=== PATIENT | male | born 1955 | race Caucasian/White ===

== ENCOUNTER 2017-03-07 09:28 | Observation (INO) ==
--- NOTE | 2017-03-07 09:50 | Emergency Department Note ---
Disposition Clinical Impression: Chest pain, COPD (chronic obstructive pulmonary disease), CO2 narcosis Disposition: Admitted As Inpatient Condition: Fair Time of Disposition: 11:39 ([facility]) Altered Mental Status HPI - General Chief Complaint: ED Altered Mental Status Stated Complaint: Confusion Time Seen by Provider: 03/07/17 09:40 Source: patient, EMS Mode of arrival: EMS Limitations: no limitations Nursing Notes Reviewed: Yes Vital Signs Reviewed: Yes - History of Present Illness HPI Narrative: Patient reportedly had awoken this morning and was somewhat confused did not know where he was apparently called EMS/[facility] and they then dispensed the squad to the house with ahead and transported to the ER patient just recently moved into the house woke up after having a rough night sleep really was not sure where he was called EMS denies any blurred vision double vision loss vision states he has had cough congestion sputum production patient states that he had little bit of chest pain but denies any nausea vomiting diaphoresis or radiation up into the neck and jaw states it hurt to breathe did not hurt to move patient states that this is ongoing for him denies any abdominal pain or discomfort denies any rashes or lesions denies any history of insect bites Noted to have a significantly large bedbug at his bedside MD complaint: confusion Onset (ago): unknown Consistency of Symptoms: waxing and waning Context: history of similar presentation, COPD Associated symptoms: Reports: malaise, weakness. Denies: chest pain, cough, diaphoresis, fever, chills, headaches, loss of appetite, nausea/vomiting, rash, seizure, shortness of breath, syncope, foul smelling urine, difficulty walking, diarrhea, incontinence - Related Data Home Medications Medication Instructions Recorded Confirmed Budesonide/Formoterol 160/4.5 2 puff IH BIDR 05/12/15 03/07/17 [Symbicort] Furosemide [Lasix] 40 mg PO DAILY 05/12/15 03/07/17 Metformin [Glucophage] 500 mg PO BID 05/12/15 03/07/17 Tiotropium [Spiriva] 18 mcg IH 0700 05/12/15 03/07/17 Lisinopril [Zestril] 5 mg PO DAILY 06/27/15 03/07/17 ALPRAZolam [Xanax 1 MG Tablet] 1 mg PO TID PRN 07/27/16 03/07/17 Albuterol Neb [Proventil Neb] 2.5 mg IH TID 07/27/16 03/07/17 Ascorbic Acid [Vitamin C] 250 mg PO BID 07/27/16 03/07/17 Aspirin 325 mg PO DAILY 07/27/16 03/07/17 Cyanocobalamin (Vitamin B-12) 1,000 mcg PO DAILY 07/27/16 03/07/17 [Vitamin B12] Ferrous Sulfate 325 mg PO BID 07/27/16 03/07/17 Oxygen 2 l NS CONT 07/27/16 03/07/17 Ranitidine HCl [Zantac] 150 mg PO BID 07/27/16 03/07/17 Roflumilast [Daliresp] 500 mcg PO DAILY 07/27/16 03/07/17 Sucralfate [Carafate] 1 gm PO QID 07/27/16 03/07/17 Previous Rx's Medication Instructions Recorded Omeprazole [PriLOSEC] 40 mg PO DAILY #14 capsule. 05/28/16 Benzonatate [Tessalon] 200 mg PO TID PRN #30 capsule 10/13/16 GuaiFENesin ER [Mucinex] 1,200 mg PO BID #28 tbbp.12hr 11/22/16 Docusate Calcium [Kaopectate] 240 mg PO Q12H #20 capsule 12/22/16 Albuterol Sulfate [Albuterol 2 puff IH Q6H #1 puff 02/23/17 Inhaler] predniSONE [PredniSONE] 20 mg PO DAILY #10 tablet 02/26/17 Allergies Allergy/AdvReac Type Severity Reaction Status Date / Time gabapentin [From Neurontin] Allergy Chest Pain Verified 10/13/16 18:02 All systems ED: reviewed and negative except as stated. Constitutional: Denies: fever, chills, weakness Eyes: Denies: eye pain ENT ED: Denies: ear pain, dental pain, dysphagia Cardiovascular: Denies: chest pain, palpitations, paroxysmal nocturnal dyspnea Respiratory: Reports: dyspnea Gastrointestinal: Denies: abdominal pain, nausea Genitourinary: Denies: urgency, frequency Musculoskeletal: Denies: back pain Integumentary: Denies: rash Neurological: Denies: headache Psychiatric: Denies: anxiety Endocrine: Denies: fatigue Hematological/Lymphatic: Denies: easy bleeding Allergic/Immunologic: Denies: facial swelling Past Medical History - Past Medical History Attestation: Yes The following information was validated with the patient. Source: patient, old records reviewed, nursing notes reviewed Medical history: Reports: COPD, diabetes, GERD Surgical history: Reports: appendectomy, carotid endarterectomy, orthopedic, other Psychiatric history: Reports: anxiety, depression - Social History Smoking Status: Former smoker Smokeless Tobacco Status: No Alcohol use: Reports: none Drug use: Reports: none Physical Exam - General Limitations: no limitations General appearance: alert, in no apparent distress, anxious, other (Poorly kept male individual making belching and hocking sounds at the bedside trying to bring up phlegm) - Head Head exam: atraumatic, normocephalic, normal inspection - Eye Eye exam: Present: normal appearance, PERRL, EOMI - ENT ENT exam: normal exam, normal oropharynx, mucous membranes moist, normal external ear exam - Neck Neck exam: Present: normal inspection, full ROM, trachea midline - Chest Chest inspection: Present: normal inspection, symmetric chest wall rise, tenderness (Reproducible costosternal) - Respiratory Respiratory exam: Present: wheezes, prolonged expiratory phase - Cardiovascular Cardiovascular exam: Present: regular rate, normal rhythm, normal heart sounds - Abdominal Exam Abdominal exam: Present: soft, Non-Tender, normal bowel sounds. 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 with muscle wasting noted wears it on the sling) Arm exam: Present: normal inspection, full ROM Elbow exam: Present: normal inspection, full ROM Forearm/Wrist exam: Present: normal inspection, full ROM Hand exam: Present: normal inspection, full ROM Vascular exam: Normal: capillary refill, radial pulse - Expanded Lower Extremity Exam Hip/Pelvis exam: Present: normal inspection, full ROM Upper leg exam: Present: normal inspection, full ROM Knee exam: Present: normal inspection, full ROM Lower leg exam: Present: normal inspection, full ROM Ankle exam: Present: normal inspection, full ROM Foot/toe exam: Present: normal inspection, full ROM Neurovascular/Tendon exam: Absent: motor deficit, sensory deficit, tendon deficit Gait: observed and normal - Back Exam Back exam: Present: normal inspection, full ROM. Absent: muscle spasm - Neurological Exam Neurological exam: Present: alert, oriented X3, CN II-XII intact - Psychiatric Psychiatric exam: Present: normal affect, normal mood - Skin Skin exam: Present: warm, dry, intact, normal color Course Course Narrative: Patient seen and examined ABG obtained patient was then placed on BiPAP while laboratory and x-ray were pending the results obtained admitted for observation services of Dr. Luciano on BiPAP Vital Signs Temperature 97.8 F 03/07/17 09:38 Pulse Rate 87 03/07/17 09:38 Respiratory Rate 20 03/07/17 09:38 Blood Pressure 133/68 03/07/17 09:38 O2 Sat by Pulse Oximetry 99 03/07/17 09:38 Temperature 97.8 F 03/07/17 09:38 Pulse Rate 88 03/07/17 11:09 Respiratory Rate 24 03/07/17 11:09 Blood Pressure 128/65 03/07/17 11:09 O2 Sat by Pulse Oximetry 99 03/07/17 11:09 Oxygen Delivery Oxygen Delivery Bipap Procedures - ABG Interpretation ABG Interpretation 1 Additional Comments: Compensated respiratory acidosis with a pH of 7.41 with a PCO2 of 70 P 60 Altered Mental Status - MDM Narrative Medical decision making narrative: Sinusitis is noted on the catheter and which could be the reason why the patient always is having some phlegm production stating that he is having issues this is chronic in origin and this could also be giving him the chronic phlegm cough and congestion-type symptomatology - Differential Diagnosis Likely: altered mental status, delirium, dementia - Medical Records Medical records reviewed: Yes I reviewed the patient's medical records. - Lab Data Lab results reviewed: Yes I reviewed the patient's lab results. Result diagrams: 03/07/17 10:03 03/07/17 10:03 Lab Results 03/07/17 03/07/17 03/07/17 Range/Units 09:46 10:03 10:03 WBC (4.3-11.1) K/mcL RBC (4.19-5.50) M/mcL Hgb (12.9-16.9) g/dL Hct (37.5-50.1) % MCV (83.0-100.0) fL MCH (28.0-33.3) pg MCHC (31.6-35.5) g/dL RDW (11.5-14.5) % Plt Count (140-400) K/mcL MPV (9.4-12.4) fL Immature Gran % (0-4) % Seg Neutrophils % % Lymphocytes % % Monocytes % % Eosinophils % % Basophils % % Neutrophils # (1.6-8.9) K/mcL Lymphocytes # (0.6-4.6) K/mcL Monocytes # (0.0-1.3) K/mcL Eosinophils # (0.0-0.6) K/mcL Basophils # (0.0-0.2) K/mcL PT (9.4-12.1) Seconds INR APTT 29.7 (26.0-36.0) Seconds ABG pH 7.42 (7.32-7.45) pH Units ABG pCO2 72 H* (35-45) mmHg ABG pO2 63 L (85-104) mmHg ABG HCO3 46.6 H (21-27) mEQ/L ABG Total CO2 48.8 H (20-26) mEq/L ABG O2 Saturation 91 L (95-98) % ABG Base Excess -20.4 L (-2.0 to 3.0) mEq/L Liter Flow 2 L/MIN Blood Gas Modality nc Inspired O2 28 % Sodium 138 (136-145) mEq/L Potassium 5.1 H (3.5-4.5) mEq/L Chloride 84 L (98-109) mEq/L Carbon Dioxide 44 H* (19-29) mEq/L BUN 20 (8-26) mg/dL Creatinine 0.74 (0.72-1.25) mg/dL Est GFR ( Amer) > 60 (> 60) Est GFR (Non-Af Amer) > 60 (> 60) BUN/Creatinine Ratio 27 H (6-26) Glucose 183 H (70-99) mg/dL Calculated Osmolality 293 (280-300) Calcium 9.6 (8.6-10.8) mg/dL Troponin I (0-0.03) ng/mL B-Natriuretic Peptide (0-100) pg/mL 03/07/17 03/07/17 03/07/17 Range/Units 10:03 10:03 10:03 WBC 8.7 (4.3-11.1) K/mcL RBC 3.46 L (4.19-5.50) M/mcL Hgb 9.7 L (12.9-16.9) g/dL Hct 32.0 L (37.5-50.1) % MCV 92.5 (83.0-100.0) fL MCH 28.0 (28.0-33.3) pg MCHC 30.3 L (31.6-35.5) g/dL RDW 14.1 (11.5-14.5) % Plt Count 222 (140-400) K/mcL MPV 10.0 (9.4-12.4) fL Immature Gran % 1.6 (0-4) % Seg Neutrophils % 75.4 % Lymphocytes % 14.0 % Monocytes % 8.7 % Eosinophils % 0.0 % Basophils % 0.3 % Neutrophils # 6.5 (1.6-8.9) K/mcL Lymphocytes # 1.2 (0.6-4.6) K/mcL Monocytes # 0.8 (0.0-1.3) K/mcL Eosinophils # 0.0 (0.0-0.6) K/mcL Basophils # 0.0 (0.0-0.2) K/mcL PT 10.4 (9.4-12.1) Seconds INR 1.0 APTT (26.0-36.0) Seconds ABG pH (7.32-7.45) pH Units ABG pCO2 (35-45) mmHg ABG pO2 (85-104) mmHg ABG HCO3 (21-27) mEQ/L ABG Total CO2 (20-26) mEq/L ABG O2 Saturation (95-98) % ABG Base Excess (-2.0 to 3.0) mEq/L Liter Flow L/MIN Blood Gas Modality Inspired O2 % Sodium (136-145) mEq/L Potassium (3.5-4.5) mEq/L Chloride (98-109) mEq/L Carbon Dioxide (19-29) mEq/L BUN (8-26) mg/dL Creatinine (0.72-1.25) mg/dL Est GFR ( Amer) (> 60) Est GFR (Non-Af Amer) (> 60) BUN/Creatinine Ratio (6-26) Glucose (70-99) mg/dL Calculated Osmolality (280-300) Calcium (8.6-10.8) mg/dL Troponin I (0-0.03) ng/mL B-Natriuretic Peptide 25 (0-100) pg/mL 03/07/17 Range/Units 10:03 WBC (4.3-11.1) K/mcL RBC (4.19-5.50) M/mcL Hgb (12.9-16.9) g/dL Hct (37.5-50.1) % MCV (83.0-100.0) fL MCH (28.0-33.3) pg MCHC (31.6-35.5) g/dL RDW (11.5-14.5) % Plt Count (140-400) K/mcL MPV (9.4-12.4) fL Immature Gran % (0-4) % Seg Neutrophils % % Lymphocytes % % Monocytes % % Eosinophils % % Basophils % % Neutrophils # (1.6-8.9) K/mcL Lymphocytes # (0.6-4.6) K/mcL Monocytes # (0.0-1.3) K/mcL Eosinophils # (0.0-0.6) K/mcL Basophils # (0.0-0.2) K/mcL PT (9.4-12.1) Seconds INR APTT (26.0-36.0) Seconds ABG pH (7.32-7.45) pH Units ABG pCO2 (35-45) mmHg ABG pO2 (85-104) mmHg ABG HCO3 (21-27) mEQ/L ABG Total CO2 (20-26) mEq/L ABG O2 Saturation (95-98) % ABG Base Excess (-2.0 to 3.0) mEq/L Liter Flow L/MIN Blood Gas Modality Inspired O2 % Sodium (136-145) mEq/L Potassium (3.5-4.5) mEq/L Chloride (98-109) mEq/L Carbon Dioxide (19-29) mEq/L BUN (8-26) mg/dL Creatinine (0.72-1.25) mg/dL Est GFR ( Amer) (> 60) Est GFR (Non-Af Amer) (> 60) BUN/Creatinine Ratio (6-26) Glucose (70-99) mg/dL Calculated Osmolality (280-300) Calcium (8.6-10.8) mg/dL Troponin I 0.05 H* (0-0.03) ng/mL B-Natriuretic Peptide (0-100) pg/mL - Radiology Data Radiology results reviewed: Yes I reviewed the patient's radiology results. ITS Impressions Chest X-Ray 03/07/17 09:46 IMPRESSION: Questionable trace pleural effusions. D/ / Scot Keith MD / Scot Keith MD Interpreting Provider: Scot Keith MD Head CT 03/07/17 10:11 IMPRESSION: No acute intracranial abnormality. Paranasal sinus disease as above. The presence of fluid in the left maxillary sinus suggests acute inflammation. Bilateral mild mastoid air cell disease. D/ / Radha Hawkins Cha, MD / Radha Hawkins Cha, MD Interpreting Provider: Radha Hawkins Cha, MD - EKG Data EKG attestation: Yes I reviewed and interpreted this EKG. EKG results narrative: A sinus rhythm incomplete right bundle-branch rate 81 CT 137 QRS 107 QT 340 axis 64 TPA Checklist - LKW: 3-4.5 hrs Add. Warnings/Precautions Patient/family understanding: The patient/family members have been counseled and understood the risk, benefit , and alternatives of treatment. Critical Care Time Critical Care Time: Yes Total Critical Care Time: 5 Attestation: Critical care performed:5 mins with the pt having an elevated CO2 most likely chronic in nature and thus placed on Bipap Time is exclusive of separately billable procedures. Time includes: direct patient care, patient reassessment, coordination of patient care, interpretation of data (laboratory data, radiology data, and respiratory data), review of patient's medical records, medical consultation and documentation of patient care. Procedures included in critical care time: Procedures excluded from critical care time:
[2017-03-07 10:14] LABS: Basophils % 0.3 %; Hemoglobin 9.7 g/dL (12.9-16.9); Immature Granulocytes % 1.6 % (0-4); Lymphocytes # 1.2 K/mcL (0.6-4.6); Mean Corpuscular HGB Conc 30.3 g/dL (31.6-35.5); Mean Corpuscular Volume 92.5 fL (83.0-100.0); Monocytes # 0.8 K/mcL (0.0-1.3); Monocytes % 8.7 %; Neutrophils # 6.5 K/mcL (1.6-8.9); Platelet Count 222 K/mcL (140-400); Red Blood Count 3.46 M/mcL (4.19-5.50); Red Cell Distribution Width 14.1 % (11.5-14.5); Segmented Neutrophils % 75.4 %
[2017-03-07 10:21] LABS: Prothrombin Time 10.4 Seconds (9.4-12.1)
[2017-03-07 10:30] LABS: BUN/Creatinine Ratio 27 (6-26); Blood Urea Nitrogen 20 mg/dL (8-26); Calcium 9.6 mg/dL (8.6-10.8); Chloride 84 mEq/L (98-109); Glucose 183 mg/dL (70-99); Osmolality,Calculated 293 (280-300); Potassium 5.1 mEq/L (3.5-4.5); Sodium 138 mEq/L (136-145); eGFR For African Americans > 60 (> 60); eGFR For Non-African Americans > 60 (> 60)
[2017-03-07 10:32] LABS: Carbon Dioxide 44 mEq/L (19-29)
[2017-03-07 10:52] LABS: ABG PH 7.42 pH Units (7.32-7.45)
[2017-03-07 10:53] LABS: ABG PCO2 72 mmHg (35-45); ABG PO2 63 mmHg (85-104)
[2017-03-07 10:54] LABS: ABG Base Excess -20.4 mEq/L (-2.0 to 3.0); ABG HCO3 46.6 mEQ/L (21-27); ABG Oxygen Saturation 91 % (95-98); ABG TCO2 48.8 mEq/L (20-26); Blood Gas FiO2 28 %; Blood Gas Liter Flow 2 L/MIN
[2017-03-07] MEDS ORDERED: methylPREDNISolone 125 MG/2 ML VIAL IVP ONE (11:10)
[2017-03-07] MEDS ORDERED: Levofloxacin 500 MG/100 ML 500 MG/100 ML BAG IVPB ONE (11:10)
[2017-03-07] MEDS ORDERED: Aspirin 81 MG TAB.CHEW PO ONE (11:11)
[2017-03-07 12:00] LABS: Bilirubin,Urine Negative (Negative); Blood,Urine Negative (Negative); Clarity,Urine Clear (Clear); Color,Urine Yellow (Yellow); Glucose,Urine (UA) Normal (Normal); Ketones,Urine Negative (Negative); Leukocyte Esterase,Urine Negative (Negative); Nitrite,Urine Negative (Negative); PH,Urine 8.5 pH Units (5.0-8.0); Protein,Urine Negative (Neg-Trace); Specific Gravity,Urine 1.015 (1.010-1.025); Urobilinogen,Urine Normal (Normal)
[2017-03-07] MEDS ORDERED: D5% in Water 1,000 ML IVC PRN (13:25)
[2017-03-07] MEDS ORDERED: Ondansetron ODT 4 MG TAB.RAPDIS SL PRN (13:25)
[2017-03-07] MEDS ORDERED: Naloxone 0.4 MG/ML INJ IVP PRN (13:25)
[2017-03-07] MEDS ORDERED: ALPRAZolam 1 MG TABLET PO PRN (13:25)
[2017-03-07] MEDS ORDERED: methylPREDNISolone 125 MG/2 ML VIAL IVP SCH (13:25)
[2017-03-07] MEDS ORDERED: *HR* Dextrose 50 % in Water (Syg) 50 ML SYRINGE IVP PRN (13:25)
[2017-03-07] MEDS ORDERED: Dextrose Gel 15 GM PO PRN ×2 (13:25)
--- NOTE | 2017-03-07 14:36 | Internal Med History&Physical ---
Date of Encounter: 03/07/17 Time of Encounter: 14:00 Assessment and Plan (1) Lethargy Current visit: Yes Status: Acute Possibly multifactorial etiology. ABG showed normal pH of 7.42 with PCO2 72. Will withhold benzodiazepines (2) Anemia Current visit: No Status: Chronic Will hold aspirin and order anemia testing in a.m. Qualifiers: Anemia type: other cause Other causes of anemia: other cause, not classified Qualified Code(s): D64.89 - Other specified anemias (3) Left kidney mass Current visit: No Status: Acute Most recent abdominal/pelvic CT scan was July 2015. Will order CT of chest abdomen and pelvis. (4) DM (diabetes mellitus), type 2 Current visit: No Status: Chronic Hemoglobin A1c was 6.4% on 08/01/2016. We will recheck in a.m. Will hold Glucophage for now. Qualifiers: Diabetes mellitus complication status: with unspecified complications Diabetes mellitus terminal gauger supervisor insulin use: without terminal gauger supervisor use Qualified Code( s): E11.8 - Type 2 diabetes mellitus with unspecified complications (5) HTN (hypertension) Current visit: No Status: Chronic We will hold Zestril because of hyperkalemia. Qualifiers: Hypertension type: essential hypertension Qualified Code(s): I10 - Essential (primary) hypertension Internal Medicine - H&P: HPI Chief complaint: Confusion Admitted From: Home Plans for Post Hospital Care: Home History of present illness: Mr. Bauer is a 61 year old male who was brought to emergency room after he awakened and felt confused. He states he called the [facility] who sent Department personnel to his house who evaluated him and then call the squad. He was brought to emergency room and evaluated and admitted to [facility] floor for ongoing care needs. He states he feels sleepy now and did not sleep well last night. He states he took a prescribed medication at home but does not know the name and states the medication is causing him to feel sleepy. Past Med Surg Social Fam HX - Past Medical History Medical history: COPD, diabetes, GERD Psychiatric history: anxiety, depression - Past Surgical History Surgical History: appendectomy, carotid endarterectomy, orthopedic, other - Social History Smoking Status: Former smoker Smokeless Tobacco Status: No Alcohol use: none Drug use: none - Family History Mother Living Status: Hx Family Endocrine Disorder: Yes (DM II) Father Adopted: No Family Member Ethnicity: Non- Living Status: Hx Family Cardiac Disorders: No Hx Family Respiratory Disorders: No Hx Family Cancer: No Hx Family GI Disorders: Yes Hx Family Endocrine Disorder: No Hx Family Neuromuscular Disorders: No Hx Family Neurologic Disorders: No Hx Family HEENT Disorders: No Hx Family Autoimmune Disorders: No Internal Medicine - H&P: Meds Budesonide/Formoterol 160/4.5 [Symbicort] 2 puff IH BIDR 05/12/15 [History] Furosemide [Lasix] 40 mg PO DAILY 05/12/15 [History] Metformin [Glucophage] 500 mg PO BID 05/12/15 [History] Tiotropium [Spiriva] 18 mcg IH 0700 05/12/15 [History] Lisinopril [Zestril] 5 mg PO DAILY 06/27/15 [History] Omeprazole [PriLOSEC] 40 mg PO DAILY #14 capsule. 05/28/16 [Rx] ALPRAZolam [Xanax 1 MG Tablet] 1 mg PO TID PRN 07/27/16 [History] Albuterol Neb [Proventil Neb] 2.5 mg IH TID 07/27/16 [History] Ascorbic Acid [Vitamin C] 250 mg PO BID 07/27/16 [History] Aspirin 325 mg PO DAILY 07/27/16 [History] Cyanocobalamin (Vitamin B-12) [Vitamin B12] 1,000 mcg PO DAILY 07/27/16 [History ] Ferrous Sulfate 325 mg PO BID 07/27/16 [History] Oxygen 2 l NS CONT 07/27/16 [History] Ranitidine HCl [Zantac] 150 mg PO BID 07/27/16 [History] Roflumilast [Daliresp] 500 mcg PO DAILY 07/27/16 [History] Sucralfate [Carafate] 1 gm PO QID 07/27/16 [History] Benzonatate [Tessalon] 200 mg PO TID PRN #30 capsule 10/13/16 [Rx] GuaiFENesin ER [Mucinex] 1,200 mg PO BID #28 tbbp.12hr 11/22/16 [Rx] Docusate Calcium [Kaopectate] 240 mg PO Q12H #20 capsule 12/22/16 [Rx] Albuterol Sulfate [Albuterol Inhaler] 2 puff IH Q6H #1 puff 02/23/17 [Rx] predniSONE [PredniSONE] 20 mg PO DAILY #10 tablet 02/26/17 [Rx] Allergies gabapentin [From Neurontin] Allergy (Verified 10/13/16 18:02) Chest Pain All Systems PM: A 10-system review of systems was performed and is negative for pertinent findings except as documented above in the HPI. Review of systems: Gen.: His weight has decreased from 88.904 kg on 08/12/2015 to 78.018 kg today. Cardiovascular: He denies hypertension OH DVT or pulmonary embolism. He reports he has a diagnosis of CHF. An echocardiogram 08/12/2015 showed LVEF of 60% with mild LV diastolic dysfunction reported although E/A ratio was 1.0. There was no significant valvular abnormalities seen. He had a heart catheter 07/14/2013 which showed minimal CAD and normal LVEF of 65%. Respiratory: He states he smoked from age [age] a total of 34 years. He smoked up to 3 packs per day. He has a diagnosis of COPD he states he wears oxygen 24/ at home. GI: He denies disorders of his liver gallbladder or exocrine pancreas. He states he had appendectomy in the past : Denies hematuria dysuria or kidney stones Neurologic: He denies large distribution strokes or seizures. He states he had polio as a child and has flaccid right arm and minimal movement in his left arm but he is able to feed himself. He states he can walk a few steps Endocrine: He was diagnosed with DM 2 approximately 2 years ago. He denies thyroid disease or hyperlipidemia Hematology/oncology: He has been told he is anemic but does not know details. He denies internal malignancies or other blood disorders Psychiatric: He denies anxiety depression other mental health issues Musk skeletal: He has polio history as mentioned. He states he has chronic pain in his neck and wrist. He denies other bone joint or muscle disorders. - Constitutional Vitals: Temp Pulse Resp BP Pulse Ox 97.8 F 88 20 136/70 93 03/07/17 12:38 03/07/17 12:06 03/07/17 12:38 03/07/17 12:38 03/07/17 12:06 Exam: Gen.: He is a well-developed well-nourished male lying in bed who is very lethargic and needs to be awakened repeatedly to answer questions. HEENT: Head is atraumatic and normocephalic. Eyes: EOMI. There is no scleral icterus. Mouth: Mucosa is moist Neck: Supple and nontender. There is no thyromegaly or adenopathy noted. Heart: Regular without murmurs gallops or ectopics Lungs: No wheezes or crackles are heard. Abdomen: Soft and nontender. No masses or guarding are noted. Extremities: He has tinea pedis of his feet and tinea corporis on his right leg/ thigh anteriorly. Dorsalis pedis and posttibial pulses are trace palpable. His right arm is flaccid with significant muscle atrophy of all hand and arm muscles. The left arm can be lifted off the bed with some difficulty. No further neurologic testing is attempted. Skin: Warm and dry Internal Med - H&P Results - Labs CBC & Chem 7: 03/07/17 10:03 03/07/17 10:03 Labs: Urine 03/07/17 Range/Units 11:55 Urine Color Yellow (Yellow) Urine Clarity Clear (Clear) Urine pH 8.5 H (5.0-8.0) pH Units Ur Specific [place] 1.015 (1.010-1.025) Urine Protein Negative (Neg-Trace) mg/dL Urine Glucose (UA) Normal (Normal) mg/dL
[2017-03-07] MEDS: 0.9 % Sodium Chloride 1,000 ML IVC SCH (15:27)
[2017-03-07] MEDS: Insulin LISPRO 300 UNITS/3 ML VIAL SQ SCH ×3 (15:28→20:57)
[2017-03-07] MEDS ORDERED: Ipratropium/Albuterol Neb 3 ML IH SCH (17:00)
[2017-03-07 18:22] LABS: Amphetamine Screen,Urine Negative ng/mL (Cutoff=1000); Barbiturate Screen,Urine Negative ng/mL (Cutoff=200); Benzodiazepines Screen,Urine Negative ng/mL (Cutoff=200); Cannabinoid Screen,Urine Negative ng/mL (Cutoff = 50); Cocaine Screen,Urine Negative ng/mL (Cutoff= 300); Opiate Screen,Urine Negative ng/mL (Cutoff=300); Phencyclidine Screen,Urine Negative ng/mL (Cutoff=25)
[2017-03-07] MEDS: *HR* OxyCODONE/APAP 5/325 TABLET PO PRN (18:51)
[2017-03-07] MEDS: ALPRAZolam 0.25 MG TABLET PO PRN (18:51)
[2017-03-07] MEDS: Albuterol 2.5 MG/3 ML NEBULIZER IH PRN (20:20)
[2017-03-07] MEDS: Ascorbic Acid 500 MG TABLET PO SCH (20:56)
[2017-03-07] MEDS: Benzonatate 100 MG CAPSULE PO PRN (20:57)
[2017-03-07] MEDS: Famotidine 20 MG TABLET PO SCH (20:57)
[2017-03-07] MEDS ORDERED: *HR* Metformin 500 MG TABLET PO SCH (21:00)
[2017-03-07] MEDS: Budesonide/Formoterol 160/4.5 MDI IH SCH (22:01)
[2017-03-08] MEDS: *HR* OxyCODONE/APAP 5/325 TABLET PO PRN ×3 (03:50→19:43)
[2017-03-08] MEDS: 0.9 % Sodium Chloride 1,000 ML IVC SCH ×2 (03:53→18:48)
[2017-03-08] MEDS: Ascorbic Acid 500 MG TABLET PO SCH ×2 (08:07→21:41)
[2017-03-08] MEDS: Famotidine 20 MG TABLET PO SCH ×2 (08:08→21:42)
[2017-03-08] MEDS: Insulin LISPRO 300 UNITS/3 ML VIAL SQ SCH ×4 (08:10→21:43)
[2017-03-08] MEDS: (Roflumilast [Daliresp] 500 MCG) PO SCH (08:16)
[2017-03-08] MEDS ORDERED: Cyanocobalamin (B-12) 1,000 MCG TABLET PO SCH (09:00)
[2017-03-08] MEDS ORDERED: Furosemide 40 MG TABLET PO SCH (09:00)
[2017-03-08] MEDS ORDERED: Aspirin 325 MG TABLET PO SCH (09:00)
[2017-03-08] MEDS ORDERED: Levofloxacin 500 MG/100 ML 500 MG/100 ML BAG IVPB SCH (09:00)
[2017-03-08 09:12] LABS: Basophils % 0.4 %; Hematocrit 31.3 % (37.5-50.1); Hemoglobin 9.4 g/dL (12.9-16.9); Immature Granulocytes % 1.8 % (0-4); Lymphocytes # 0.9 K/mcL (0.6-4.6); Lymphocytes % 10.9 %; Mean Corpuscular Hemoglobin 27.7 pg (28.0-33.3); Mean Corpuscular Volume 92.3 fL (83.0-100.0); Mean Platelet Volume 10.4 fL (9.4-12.4); Monocytes # 0.7 K/mcL (0.0-1.3); Monocytes % 8.8 %; Neutrophils # 6.1 K/mcL (1.6-8.9); Platelet Count 270 K/mcL (140-400); Red Blood Count 3.39 M/mcL (4.19-5.50); Red Cell Distribution Width 13.7 % (11.5-14.5); Segmented Neutrophils % 78.1 %
--- NOTE | 2017-03-08 12:14 | Electrocardiograph Report ---
[address] [address] Test Date: 2017-03-07 Pat Name: David Bauer Department: [id number] Room: [facility] Gender: M Informatics Specialist: [id number] : [id number] Requested By: Meliza Flor Order Number: [id number] Reading MD: Wolfgang Callaway MD Measurements Intervals [place] Rate: 81 P: 83 CO: 137 QRS: 64 QRSD: 107 T: 64 QT: 340 QTc: 377 Interpretive Statements SINUS RHYTHM INCOMPLETE RIGHT BUNDLE BRANCH BLOCK VOLTAGE CRITERIA FOR LVH Electronically Signed On 03-08-2017 12:13:00 EDT by Wolfgang Callaway MD
[2017-03-08 13:35] LABS: Hemoglobin A1C 7.3 %
[2017-03-08] MEDS: Budesonide/Formoterol 160/4.5 MDI IH SCH ×2 (15:53→20:54)
[2017-03-08 16:34] LABS: BUN/Creatinine Ratio 24 (6-26); Blood Urea Nitrogen 16 mg/dL (8-26); Calcium 9.1 mg/dL (8.6-10.8); Chloride 89 mEq/L (98-109); Glucose 162 mg/dL (70-99); Magnesium 1.1 mg/dL (1.6-2.6); Osmolality,Calculated 291 (280-300); Potassium 4.7 mEq/L (3.5-4.5); Sodium 138 mEq/L (136-145); Thyroid Stimulating Hormone 0.231 mcIU/mL (0.350-4.840); eGFR For African Americans > 60 (> 60); eGFR For Non-African Americans > 60 (> 60)
[2017-03-08 17:29] LABS: Carbon Dioxide 41 mEq/L (19-29)
[2017-03-08] MEDS ORDERED: Mag Hydrox/Al Hydrox/Simeth 30 ML UDC PO PRN (19:36)
--- NOTE | 2017-03-08 19:46 | Internal Med Progress Note ---
Date of Encounter: 03/08/17 Time of Encounter: 19:20 - Assessment and plan (1) Lethargy Current Visit: Yes Status: Acute Assessment and plan: March 08. Resolved. Continue to withhold scheduled benzodiazepines and use only prn (2) Anemia Current Visit: No Status: Chronic Assessment and plan: March 08. Anemia testing showed iron 55, transferrin saturation 17%, transferrin 237, ferritin 185, B12 1043 (high), and folate 9.0. We will discontinue B12 supplement but continue ferrous sulfate with vitamin C for now. Qualifiers: Anemia type: other cause Other causes of anemia: other cause, not classified Qualified Code(s): D64.89 - Other specified anemias (3) Left kidney mass Current Visit: No Status: Acute Assessment and plan: March 08. CT scan showed stable left renal exophytic mass indicating probable benign lesion. No significant acute pathology seen otherwise other than atelectasis of the LLL. (4) DM (diabetes mellitus), type 2 Current Visit: No Status: Chronic Assessment and plan: March 08. Hemoglobin A1c minimally elevated at 7.3%. We will restart Glucophage Qualifiers: Diabetes mellitus complication status: with unspecified complications Diabetes mellitus technician terminal and repeater insulin use: without technician terminal and repeater use Qualified Code( s): E11.8 - Type 2 diabetes mellitus with unspecified complications (5) HTN (hypertension) Current Visit: No Status: Chronic Assessment and plan: March 08. Will give metoprolol and continue to withhold lisinopril. Qualifiers: Hypertension type: essential hypertension Qualified Code(s): I10 - Essential (primary) hypertension (6) Hypomagnesemia Current Visit: Yes Status: Acute (7) GERD (gastroesophageal reflux disease) Current Visit: No Status: Chronic Assessment and plan: March 08. Continue Pepcid. Will add Mylanta for prn use. Qualifiers: Esophagitis presence: esophagitis presence not specified Qualified Code(s) : K21.9 - Gastro-esophageal reflux disease without esophagitis (8) Low TSH level Current Visit: Yes Status: Acute Assessment and plan: March 08. Will check free T4 in a.m. (9) Tinea pedis Current Visit: Yes Status: Acute Assessment and plan: March 08. Will order Lotrimin cream twice a day Qualifiers: Laterality: bilateral Qualified Code(s): B35.3 - Tinea pedis - Subjective Interval history: March 08. He has no new complaints except GERD symptoms - Constitutional Vitals: Temp Pulse Resp BP Pulse Ox 98.1 F 104 20 166/81 94 03/08/17 18:08 03/08/17 18:08 03/08/17 18:08 03/08/17 18:08 03/08/17 18:08 Exam: He is resting comfortably in bed. He is much more awake and talkative than yesterday. He is appropriate in conversation. I reviewed his medications and lab results. Internal Medicine: Result - Labs CBC & Chem 7: 03/08/17 07:55 03/08/17 07:55 Labs: Short CBC 03/08/17 Range/Units 07:55 WBC 7.9 (4.3-11.1) K/mcL Hgb 9.4 L (12.9-16.9) g/dL Hct 31.3 L (37.5-50.1) % Plt Count 270 (140-400) K/mcL Neutrophils # 6.1 (1.6-8.9) K/mcL BMP 03/08/17 07:55 Sodium 138 Potassium 4.7 H Chloride 89 L Carbon Dioxide 41 H* BUN 16 Creatinine 0.67 L Glucose 162 H Calcium 9.1 Cardiac Enzymes 03/07/17 Range/Units 21:15 Troponin I 0.04 H* (0-0.03) ng/mL - ABG Interpretation ABG results: ABG ABG pH 7.42 pH Units (7.32-7.45) 03/07/17 10:30 ABG pCO2 72 mmHg (35-45) H* 03/07/17 10:30 ABG pO2 63 mmHg (85-104) L 03/07/17 10:30 ABG O2 Saturation 91 % (95-98) L 03/07/17 10:30 PT/INR, D-dimer PT 10.4 Seconds (9.4-12.1) 03/07/17 10:03 - Impressions Impressions Abdomen/Pelvis CT 03/07/17 15:03 IMPRESSION: 1. Exophytic hyperdense lesion in the left lower kidney is unchanged since comparison exam and is likely of benign etiology. Consider hemorrhagic cyst. No suspicious mass identified within the abdomen and pelvis in this limited noncontrast examination. 2. Complete atelectasis of the left lower lobe. Etiology is uncertain. Also partial atelectasis of right lower lobe. 3. Otherwise, lungs are clear. No suspicious pulmonary lesion identified. D/ : / 03/07/2017 21:13:37 Austin Emanuel MD / camila Interpreting Provider: Austin Emanuel MD Chest CT 03/07/17 15:03 IMPRESSION: 1. Exophytic hyperdense lesion in the left lower kidney is unchanged since comparison exam and is likely of benign etiology. Consider hemorrhagic cyst. No suspicious mass identified within the abdomen and pelvis in this limited noncontrast examination. 2. Complete atelectasis of the left lower lobe. Etiology is uncertain. Also partial atelectasis of right lower lobe. 3. Otherwise, lungs are clear. No suspicious pulmonary lesion identified. D/ : / 03/07/2017 21:13:37 Austin Emanuel MD / camila Interpreting Provider: Austin Emanuel MD Consult Discharge Plan - Plan Referrals: NO,PCP [Primary Care Provider] - 1 week
[2017-03-08] MEDS: Albuterol 2.5 MG/3 ML NEBULIZER IH PRN (20:53)
[2017-03-08] MEDS: Magnesium Oxide 400 MG TABLET PO SCH (21:42)
[2017-03-08] MEDS: ALPRAZolam 0.25 MG TABLET PO PRN (21:42)
[2017-03-09] MEDS: *HR* OxyCODONE/APAP 5/325 TABLET PO PRN ×2 (00:23→08:15)
[2017-03-09] MEDS: Acetaminophen 325 MG TABLET PO SCH ×2 (00:23→04:20)
[2017-03-09] MEDS: Clotrimazole 1% CRM 15 GM TUBE TP SCH ×2 (00:53→08:19)
[2017-03-09] MEDS: ALPRAZolam 0.25 MG TABLET PO PRN (04:20)
[2017-03-09 05:22] LABS: Basophils % 0.5 %; Hematocrit 31.9 % (37.5-50.1); Hemoglobin 9.5 g/dL (12.9-16.9); Immature Granulocytes % 1.6 % (0-4); Lymphocytes # 1.4 K/mcL (0.6-4.6); Lymphocytes % 16.9 %; Mean Corpuscular HGB Conc 29.8 g/dL (31.6-35.5); Mean Corpuscular Hemoglobin 27.9 pg (28.0-33.3); Mean Corpuscular Volume 93.5 fL (83.0-100.0); Mean Platelet Volume 9.5 fL (9.4-12.4); Monocytes # 0.8 K/mcL (0.0-1.3); Neutrophils # 5.7 K/mcL (1.6-8.9); Platelet Count 256 K/mcL (140-400); Red Blood Count 3.41 M/mcL (4.19-5.50); Red Cell Distribution Width 13.9 % (11.5-14.5)
[2017-03-09 05:46] LABS: BUN/Creatinine Ratio 18 (6-26); Blood Urea Nitrogen 12 mg/dL (8-26); Calcium 9.6 mg/dL (8.6-10.8); Chloride 89 mEq/L (98-109); Glucose 164 mg/dL (70-99); Osmolality,Calculated 289 (280-300); Potassium 4.4 mEq/L (3.5-4.5); Sodium 138 mEq/L (136-145); eGFR For African Americans > 60 (> 60); eGFR For Non-African Americans > 60 (> 60)
[2017-03-09 05:56] LABS: Carbon Dioxide 43 mEq/L (19-29)
[2017-03-09] MEDS: Insulin LISPRO 300 UNITS/3 ML VIAL SQ SCH ×3 (07:33→12:56)
[2017-03-09] MEDS: Magnesium Oxide 400 MG TABLET PO SCH (08:15)
[2017-03-09] MEDS: Ascorbic Acid 500 MG TABLET PO SCH (08:15)
[2017-03-09] MEDS: Benzonatate 100 MG CAPSULE PO PRN (08:15)
[2017-03-09] MEDS: Famotidine 20 MG TABLET PO SCH (08:15)
[2017-03-09] MEDS: (Roflumilast [Daliresp] 500 MCG) PO SCH (08:17)
[2017-03-09] MEDS: Budesonide/Formoterol 160/4.5 MDI IH SCH (10:36)
[2017-03-09 10:51] VITALS: BP 115/64
--- NOTE | 2017-03-09 12:22 | Discharge Summary ---
Date of Encounter: 03/09/17 Time of Encounter: 12:05 - Discharge Diagnosis (1) Lethargy Priority: Primary Status: Acute (2) Anemia Priority: Secondary Status: Chronic Qualifiers: Anemia type: other cause Other causes of anemia: other cause, not classified Qualified Code(s): D64.89 - Other specified anemias (3) Left kidney mass Priority: Secondary Status: Acute (4) DM (diabetes mellitus), type 2 Priority: Secondary Status: Chronic Qualifiers: Diabetes mellitus complication status: with unspecified complications Diabetes mellitus residential insulin use: without ferry terminal supervisor use Qualified Code( s): E11.8 - Type 2 diabetes mellitus with unspecified complications (5) HTN (hypertension) Priority: Secondary Status: Chronic Qualifiers: Hypertension type: essential hypertension Qualified Code(s): I10 - Essential (primary) hypertension (6) Hypomagnesemia Priority: Secondary Status: Acute (7) GERD (gastroesophageal reflux disease) Priority: Secondary Status: Chronic Qualifiers: Esophagitis presence: esophagitis presence not specified Qualified Code(s) : K21.9 - Gastro-esophageal reflux disease without esophagitis (8) Low TSH level Priority: Secondary Status: Acute (9) Tinea pedis Priority: Secondary Status: Acute Qualifiers: Laterality: bilateral Qualified Code(s): B35.3 - Tinea pedis - Discharge Medications Prescriptions: Clotrimazole 1% CRM [Lotrimin 1%] 1 appl TP BID #1 tube Magnesium Oxide [Mag-Ox] 400 mg PO BID #14 tablet Metoprolol XL (24 HR) Succ [Toprol XL] 50 mg PO DAILY #30 tab.er.24h Home Medications: Budesonide/Formoterol 160/4.5 [Symbicort] 2 puff IH BIDR 05/12/15 [History] Metformin [Glucophage] 500 mg PO BID 05/12/15 [History] Tiotropium [Spiriva] 18 mcg IH 0700 05/12/15 [History] Albuterol Neb [Proventil Neb] 2.5 mg IH TID 07/27/16 [History] Ascorbic Acid [Vitamin C] 250 mg PO BID 07/27/16 [History] Ferrous Sulfate 325 mg PO BID 07/27/16 [History] Oxygen 2 l NS CONT 07/27/16 [History] Ranitidine HCl [Zantac] 150 mg PO BID 07/27/16 [History] Roflumilast [Daliresp] 500 mcg PO DAILY 07/27/16 [History] Sucralfate [Carafate] 1 gm PO QID 07/27/16 [History] Albuterol Sulfate [Albuterol Inhaler] 2 puff IH Q6H #1 puff 02/23/17 [Rx] Clotrimazole 1% CRM [Lotrimin 1%] 1 appl TP BID #1 tube 03/09/17 [Rx] Magnesium Oxide [Mag-Ox] 400 mg PO BID #14 tablet 03/09/17 [Rx] Metoprolol XL (24 HR) Succ [Toprol XL] 50 mg PO DAILY #30 tab.er.24h 03/09/17 [ Rx] Allergies/Adverse Reactions: Allergies gabapentin [From Neurontin] Allergy (Verified 10/13/16 18:02) Chest Pain Procedures/tests Complete & Pending: Procedures Performed prior 72 hours Category Date Time Status CT abd pelvis wo no iv no oral [CT] Routine Cat Scan 03/07/17 15:[address] chest wo con [CT] Routine Cat Scan 03/07/17 15:03 Completed Date of admission: 03/07/17 11:37 Primary care physician: Noman Lomas CNP Consults: 03/07/17 17:56 Consult to Patient Scheduling Coordinator [CONS] Routine Reason for SW Consult: discharge planning 03/08/17 19:37 Consult to Occupational Therapy [CONS] Routine Comment: Evaluate, develop and implement POC Reason for Consult: Weakness with history of polio Consult to Physical Therapy [CONS] Routine Comment: Evaluate, develop and implement POC Reason for Consult: Weakness with history of polio - Patient Status Disposition: Home, Self-Care Condition: Fair Functional capacity at discharge: uses cane/walker Overall status at discharge: patient is progressing back to baseline - Discharge Instructions Follow Up With: Noman Lomas [employer] [Advanced Practice Nurse] - 1 week - Diet and Activity Activity: as per physical therapy Diet: diabetic diet Hospital course: Mr. Bauer is a 61 year old male who was brought to emergency room after he awakened and felt confused. He states he called the [employer] Supervisor who sent Department personnel to his house who evaluated him and then call the squad. He was brought to emergency room and evaluated and admitted to [facility] for ongoing care needs. Initial orders were written by the emergency room physician. I saw him on March 07 and performed the history and physical. Benzodiazepines were held and his mental status improved. He had assessment by physical therapy and occupational therapy and was felt to be safe to ambulate satisfactory in the home. Social service and APS evaluations were done. He will be discharged home and follow with his PCP Noman Lomas CNP within [address] scan was done to follow-up on previous seen left renal mass. There was no significant change in the mass since 2014 and the mass was felt be benign. Hemoglobin A1c returns slightly elevated at 7.3%. Will continue Glucophage at present dose for now. Lisinopril was discontinued because of hyperkalemia. He was placed on metoprolol and had improvement in his heart rate and blood pressure. He will continue Toprol-XL at discharge. He was given Lotrimin cream for tinea pedis and tinea corporis. He will be prescribed a 15 gm. tube of this at discharge. He was given supplemental magnesium after magnesium level returned low at 1.1. He will continue with magnesium oxide 400 mg twice a day for one week at discharge. PCP can monitor labs. He will continue oxygen at home at present settings. He will follow with his PCP within one week. Health services will be ordered. - Time Spent with Patient Total time spent providing and/or coordinating discharge services: - Constitutional Vitals: Temp Pulse Resp BP Pulse Ox 97.3 F L 81 18 115/64 94 03/09/17 10:40 03/09/17 10:40 03/09/17 10:40 03/09/17 10:40 03/09/17 10:40
--- NOTE | 2017-03-09 12:30 | Physician Discharge Referral ---
Home Health/Hosp Referral Info Transfer to: Home Health Attending Provider: Mustapha Provider in Charge Post Discharge: PCP (Noman Lomas CNP) - Diagnosis (1) Lethargy Priority: Primary Status: Acute (2) Anemia Priority: Secondary Status: Chronic (3) Left kidney mass Priority: Secondary Status: Acute (4) DM (diabetes mellitus), type 2 Priority: Secondary Status: Chronic (5) HTN (hypertension) Priority: Secondary Status: Chronic (6) Hypomagnesemia Priority: Secondary Status: Acute (7) GERD (gastroesophageal reflux disease) Priority: Secondary Status: Chronic (8) Low TSH level Priority: Secondary Status: Acute (9) Tinea pedis Priority: Secondary Status: Acute - Respiratory Orders Oxygen / L per min (2 L/m by nasal cannula 22/03.) Smoking Cessation: Smoking cessation has been advised. For more information, call the [place] Tobacco Quit Line at 3-525-YYGC-NOW. - Diet/Nutrition Diet/Nutrition Orders: No Concentrated Sweets - Activity Activity Orders: Walker - Services Needed Following services are medically necessary services: Nursing, Home Health Aide, Physical Therapy, Occupational Therapy - Transfer Medications Prescriptions: Clotrimazole 1% CRM [Lotrimin 1%] 1 appl TP BID #1 tube Magnesium Oxide [Mag-Ox] 400 mg PO BID #14 tablet Metoprolol XL (24 HR) Succ [Toprol XL] 50 mg PO DAILY #30 tab.er.24h Home Medications: Budesonide/Formoterol 160/4.5 [Symbicort] 2 puff IH BIDR 05/12/15 [History] Metformin [Glucophage] 500 mg PO BID 05/12/15 [History] Tiotropium [Spiriva] 18 mcg IH 0700 05/12/15 [History] Albuterol Neb [Proventil Neb] 2.5 mg IH TID 07/27/16 [History] Ascorbic Acid [Vitamin C] 250 mg PO BID 07/27/16 [History] Ferrous Sulfate 325 mg PO BID 07/27/16 [History] Oxygen 2 l NS CONT 07/27/16 [History] Ranitidine HCl [Zantac] 150 mg PO BID 07/27/16 [History] Roflumilast [Daliresp] 500 mcg PO DAILY 07/27/16 [History] Sucralfate [Carafate] 1 gm PO QID 07/27/16 [History] Albuterol Sulfate [Albuterol Inhaler] 2 puff IH Q6H #1 puff 02/23/17 [Rx] Clotrimazole 1% CRM [Lotrimin 1%] 1 appl TP BID #1 tube 03/09/17 [Rx] Magnesium Oxide [Mag-Ox] 400 mg PO BID #14 tablet 03/09/17 [Rx] Metoprolol XL (24 HR) Succ [Toprol XL] 50 mg PO DAILY #30 tab.er.24h 03/09/17 [ Rx] Allergies/Adverse Reactions: Allergies gabapentin [From Neurontin] Allergy (Verified 10/13/16 18:02) Chest Pain Certification: Further, I certify that my clinical findings support that this patient is homebound (i.e. 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
[2017-03-09] MEDS: Albuterol 2.5 MG/3 ML NEBULIZER IH PRN (14:41)
== END 2017-03-09 14:58 | disposition home or self-care (01) ==
LOC: EMEROOPIK 09:28 → INPPIK 09:28
PROVIDERS: ADMIT Internal Medicine; ATTEND Internal Medicine